=== PATIENT | male | born 1975 | race Two or more races ===

== ENCOUNTER 2017-01-19 02:54 | Emergency (ER) | payer BC ==
[~2017-01-19] VITALS: Ht 165.1 cm; Wt 77.1 kg
[~2017-01-19 02:54] MED LIST: OXYC-323 PO
[2017-01-19 03:04] VITALS: BP 181/98
[2017-01-19] MEDS ORDERED: FLUORESCEIN OPHTH TEST STRIP. OS ONE (04:15)
[2017-01-19] MEDS ORDERED: TETRACAINE 0.5% OPHTH SOLUTION 4ML BOTTLE. OS ONE (04:15)
--- NOTE | 2017-01-19 04:57 | PHYS DOC ---
Past Medical History Past Medical History: No Pertinent History Past Surgical History: No Surgical History Alcohol Use: Heavy Drug Use: None Adult General Chief Complaint Chief Complaint: FOREIGN BODY/EYES HPI HPI Patient is a 41 year old male who presents with right eye irritation. Reports exposure to sawdust while sawing wood several hours prior to arrival. Feels like a piece of sawdust is stuck under his eyelid. Denies vision changes, does not wear glasses or contacts. Review of Systems Review of Systems Constitutional: Denies fever or chills Eyes: Reports eye irritation HENT: Denies nasal congestion or sore throat Respiratory: Denies cough Cardiovascular: Denies chest pain GI: Denies abdominal pain, nausea, vomiting Musculoskeletal: Denies back pain or joint pain Integument: Denies rash Neurologic: Denies headache Current Medications Current Medications Current Medications Medications (Trade) Dose Ordered Sig/Tip Start Time Stop Time Status Last Admin Dose Admin Erythromycin (Romycin) 0.25 inch 1X ONCE 01/19/17 05:15 01/19/17 05:15 DC 01/19/17 05:00 0.25 INCH Fluorescein Sodium (Ful-Narcisa) 1 strip 1X ONCE 01/19/17 04:15 01/19/17 04:16 DC 01/19/17 04:11 1 STRIP Tetracaine HCl (Tetracaine) 1 drop 1X ONCE 01/19/17 04:15 01/19/17 04:16 DC 01/19/17 04:11 1 DROP Allergies Allergies Allergies Coded Allergies Type Severity Reaction Last Updated Verified No Known Drug Allergies 06/30/15 No Physical Exam Physical Exam Constitutional: Well developed, well nourished, no acute distress, non-toxic appearance. HENT: Normocephalic, atraumatic, bilateral external ears normal, oropharynx moist, nose normal. Eyes: PERRLA, EOMI, left eye conjunctival injection, no evidence of foreign body , no corneal abrasion with fluorescein stain & exam under anand lamp, no discharge. Cardiovascular: no edema. Lungs & Thorax: no respiratory distress. Abdomen: nondistended. Skin: no rash. Extremities: No deformity Neurologic: Alert and oriented X 3 Current Patient Data Vital Signs Vital Signs Date Time Temp Pulse Resp B/P (MAP) Pulse Ox O2 Delivery O2 Flow Rate FiO2 01/19/17 03:04 98.7 79 16 99 Room Air 98.7 EKG EKG [] Radiology/Procedures Radiology/Procedures [] Course & Med Decision Making Course & Med Decision Making Pertinent Labs and Imaging studies reviewed. (See chart for details) The patient presents with eye irritation possible foreign body. Tech assisted with eye irrigation, visual acuities documented. No corneal abrasion with anand lamp exam after fluorescein instillation. Will give erythromycin, recommend follow up with Dr. Harding in the eye clinic in 2-3 days if not improving. Come back for vision changes or otherwise worsening condition. Discharged home in stable condition. [] Dragon Disclaimer Dragon Disclaimer This electronic medical record was generated, in whole or in part, using a voice recognition dictation system. Departure Departure Impression: Primary Impression: Conjunctivitis Disposition: HOME, SELF-CARE Condition: STABLE Referrals: NO PCP (PCP) VEGA HARDING MD Patient Instructions: Eye - Foreign Body, [id number] Additional Instructions: You were seen in the emergency department today for foreign body in eye. There was no abrasion or remaining particle on exam. Please apply prescribed antibiotic ointment three times daily. Follow up with Dr. Harding in the eye clinic if symptoms not better on Saturday. SUSANNA AVALOS MD Jan 19, 2017 04:57
[2017-01-19] MEDS ORDERED: ERYTHROMYCIN 0.5% OPHTH OINTMENT 1GM TUBE. OS ONE (05:15)
== END 2017-01-19 05:15 | disposition home or self-care (01) ==
LOC: ER 02:54
DX: H10.9 Unspecified conjunctivitis (principal); F10.10 Alcohol abuse, uncomplicated
CPT/HCPCS: 99283

== ENCOUNTER 2018-08-10 18:37 | Inpatient (IN) | payer SELFPAY ==
[~2018-08-10] VITALS: Ht 160 cm; Wt 81.7 kg
[~2018-08-10 18:37] MED LIST changes: -OXYC-323 PO; +OXYC1TAB15 PO
--- NOTE | 2018-08-10 20:15 | PHYS DOC ---
Past Medical History Past Medical History: No Pertinent History Past Surgical History: Cholecystectomy Alcohol Use: Occasionally Drug Use: None Adult General Chief Complaint Chief Complaint: HYPERTENSION HPI HPI Patient is a 43 year old female was presenting with chief complaint of palpitations and generalized weakness. This patient has had some palpitations at night. The heart pounding for the last 2 months today he was cleaning his car he just felt very very weak like he was going to pass out he felt very dizzy he felt very nauseous she really did not have any chest pain per se he had some mild shortness of breath but that is much better. Patient has no recent fevers at all. Review of Systems Review of Systems Constitutional: Denies fever or chills [] Eyes: Denies change in visual acuity, redness, or eye pain [] HENT: Denies nasal congestion or sore throat [] Musculoskeletal: Denies back pain or joint pain [] Integument: Denies rash or skin lesions [] All other systems were reviewed and found to be within normal limits, except as documented in this note. Current Medications Current Medications Current Medications Medications (Trade) Dose Ordered Sig/Tip Start Time Stop Time Status Last Admin Dose Admin Amlodipine Besylate (Norvasc) 5 mg 1X ONCE 08/10/18 20:30 08/10/18 20:31 DC 08/10/18 20:59 5 MG Aspirin (Children'S Aspirin) 324 mg 1X ONCE 08/10/18 20:30 08/10/18 20:31 DC 08/10/18 20:59 324 MG Labetalol HCl (Normodyne Iv Push) 20 mg PRN Q2HR PRN 08/10/18 21:15 Nitroglycerin (Nitro-Bid Oint) 1 inch 1X ONCE 08/10/18 21:00 08/10/18 21:01 DC 08/10/18 21:01 1 INCH Nitroglycerin (Nitrostat) 0.4 mg PRN Q5MIN PRN 08/10/18 21:15 08/11/18 21:14 Allergies Allergies Allergies Coded Allergies Type Severity Reaction Last Updated Verified No Known Drug Allergies 06/30/15 No Physical Exam Physical Exam Constitutional: Well developed, well nourished, no acute distress, non-toxic appearance. [] HENT: Normocephalic, atraumatic, bilateral external ears normal, oropharynx moist, no oral exudates, nose normal. [] Eyes: PERRLA, EOMI, conjunctiva normal, no discharge. [] Neck: Normal range of motion, no tenderness, supple, no stridor. [] Cardiovascular:Heart rate regular rhythm, no murmur [] Lungs & Thorax: Bilateral breath sounds clear to auscultation [] Abdomen: Bowel sounds normal, soft, no tenderness, no masses, no pulsatile masses. [] Skin: Warm, dry, no erythema, no rash. [] Back: No tenderness, no CVA tenderness. [] Extremities: No tenderness, no cyanosis, no clubbing, ROM intact, no edema. [] Neurologic: Alert and oriented X 3, normal motor function, normal sensory function, no focal deficits noted. [] Psychologic: Affect normal, judgement normal, mood normal. [] Current Patient Data Vital Signs Vital Signs Date Time Temp Pulse Resp B/P (MAP) Pulse Ox O2 Delivery O2 Flow Rate FiO2 08/10/18 21:01 79 149/91 08/10/18 19:51 97.8 20 97 Room Air 97.8 Lab Values Laboratory Tests Test 08/10/18 20:05 White Blood Count 8.2 x10^3/uL (4.0-11.0) Red Blood Count 5.25 x10^6/uL (4.30-5.70) Hemoglobin 15.7 g/dL (13.0-17.5) Hematocrit 46.7 % (39.0-53.0) Mean Corpuscular Volume 89 fL (79-100) Mean Corpuscular Hemoglobin 30 pg (25-35) Mean Corpuscular Hemoglobin Concent 34 g/dL (31-37) Red Cell Distribution Width 13.2 % (11.5-14.5) Platelet Count 210 x10^3/uL (140-400) Neutrophils (%) (Auto) 64 % (31-73) Lymphocytes (%) (Auto) 27 % (24-48) Monocytes (%) (Auto) 8 % (0-9) Eosinophils (%) (Auto) 1 % (0-3) Basophils (%) (Auto) 1 % (0-3) Neutrophils # (Auto) 5.3 x10^3uL (1.8-7.7) Lymphocytes # (Auto) 2.2 x10^3/uL (1.0-4.8) Monocytes # (Auto) 0.7 x10^3/uL (0.0-1.1) Eosinophils # (Auto) 0.0 x10^3/uL (0.0-0.7) Basophils # (Auto) 0.0 x10^3/uL (0.0-0.2) Prothrombin Time 13.4 SEC (11.7-14.0) Prothrombin Time INR 1.1 (0.8-1.1) Sodium Level 141 mmol/L (136-145) Potassium Level 3.5 mmol/L (3.5-5.1) Chloride Level 101 mmol/L (98-107) Carbon Dioxide Level 27 mmol/L (21-32) Anion Gap 13 (6-14) Blood Urea Nitrogen 14 mg/dL (8-26) Creatinine 0.9 mg/dL (0.7-1.3) Estimated GFR (Cockcroft-Gault) 91.7 BUN/Creatinine Ratio 16 (6-20) Glucose Level 111 mg/dL (70-99) H Calcium Level 9.0 mg/dL (8.5-10.1) Total Bilirubin 0.9 mg/dL (0.2-1.0) Aspartate Amino Transferase (AST) 30 U/L (15-37) Alanine Aminotransferase (ALT) 36 U/L (16-63) Alkaline Phosphatase 77 U/L (46-116) Troponin I Quantitative 0.111 ng/mL (0.000-0.055) UT-Axp-F-Type Natriuretic Peptide 9 pg/mL (0-124) Total Protein 8.2 g/dL (6.4-8.2) Albumin 4.0 g/dL (3.4-5.0) Albumin/Globulin Ratio 1.0 (1.0-1.7) Ethyl Alcohol Level < 10 mg/dL (0-10) Laboratory Tests 08/10/18 20:05 Laboratory Tests 08/10/18 20:05 EKG EKG []ekg SHOWS NORMAL SINUS RHYTHM normal intervals no STEMI no ischemic changes Radiology/Procedures Radiology/Procedures [] Impressions: chest x-ray is pending at this time Course & Med Decision Making Course & Med Decision Making Pertinent Labs and Imaging studies reviewed. (See chart for details) []43-year-old male with a history of apparent possible hypertension and a family history of coronary disease mother at the age of 35 from a heart attack was presenting with vague sensation of generalized weakness and some nausea while exerting himself this afternoon he has had blood pressure in the 170s at this point in time cardiac etiology is certainly a possibility. The heart score is a H 2 E 0 A 0 R 1 T 1, the history is somewhat vague but cardiac is possible igven strong family hx, will admit for serial trops and consideration of FURTHER RISK STRATIFICATION. D/W LENI. Marah Disclaimer Dragarmando Disclaimer This electronic medical record was generated, in whole or in part, using a voice recognition dictation system. Departure Departure Impression: Primary Impression: Elevated troponin Additional Impression: Hypertensive urgency Disposition: ADMITTED INPATIENT Admitting Physician: Sal Khan Condition: STABLE Referrals: NO PCP (PCP) Problem Qualifiers CUCA MCINTYRE MD Aug 10, 2018 20:15
[2018-08-10 20:22] LABS: BASO % 1 % (0-3); EOS % 1 % (0-3); HEMATOCRIT 46.7 % (39.0-53.0); HEMOGLOBIN 15.7 g/dL (13.0-17.5); LYMPH # 2.2 x10^3/uL (1.0-4.8); LYMPH % 27 % (24-48); MEAN CORPUSCULAR HEMOGLOBIN 30 pg (25-35); MEAN CORPUSCULAR HGB CONC 34 g/dL (31-37); MEAN CORPUSCULAR VOLUME 89 fL (79-100); MONO # 0.7 x10^3/uL (0.0-1.1); MONO % 8 % (0-9); NEUT # 5.3 x10^3uL (1.8-7.7); NEUT % 64 % (31-73); PLATELET COUNT 210 x10^3/uL (140-400); RED BLOOD COUNT 5.25 x10^6/uL (4.30-5.70); RED CELL DISTRIBUTION WIDTH 13.2 % (11.5-14.5); WHITE BLOOD COUNT 8.2 x10^3/uL (4.0-11.0)
[2018-08-10] MEDS ORDERED: ASPIRIN CHEWABLE 81 MG TABLET. PO ONE (20:30)
[2018-08-10] MEDS ORDERED: amLODIPine BESYLATE 5 MG TABLET PO ONE (20:30)
[2018-08-10 20:32] LABS: CREATININE 0.9 mg/dL (0.7-1.3); GFR 91.7; POTASSIUM 3.5 mmol/L (3.5-5.1)
[2018-08-10 20:34] LABS: PROTHROMBIN TIME PATIENT 13.4 SEC (11.7-14.0)
[2018-08-10 20:39] LABS: TOTAL BILIRUBIN 0.9 mg/dL (0.2-1.0); TOTAL PROTEIN 8.2 g/dL (6.4-8.2)
--- NOTE | 2018-08-10 20:51 | RAD ---
EXAM: Chest, single view. HISTORY: Chest pain. COMPARISON: None. FINDINGS: A frontal view of the chest is obtained. There is no infiltrate, pleural effusion or pneumothorax. The heart is normal in size. IMPRESSION: No acute pulmonary finding. Electronically signed by: Carmelina Patterson MD (08/10/2018 8:48 PM) [facility]
[2018-08-10] MEDS ORDERED: NITROGLYCERIN OINT 1 GM PACKET. TP ONE (21:00)
[2018-08-10] MEDS ORDERED: NITROGLYCERIN SUBLINGUAL 0.4 MG BOTTLE OF 25. SL PRN (21:15)
[2018-08-10] MEDS ORDERED: LABETALOL 20 MG/4 ML DISP.SYRIN. IVP PRN (21:15)
[2018-08-10 22:23] LABS: BARBITURATES NEG (NEG); BENZODIAZEPINES NEG (NEG); CANNABINOIDS NEG (NEG); COCAINE NEG (NEG); METHADONE NEG (NEG); OPIATES NEG (NEG); PHENCYCLIDINE NEG (NEG)
[2018-08-10 22:24] LABS: AMPHETAMINE/METHAMPHETAMINE NEG (NEG)
[2018-08-10 23:00] VITALS: BP 113/67
[2018-08-11 03:00] VITALS: BP 109/63
[2018-08-11 07:00] VITALS: BP 111/69
--- NOTE | 2018-08-11 07:04 | EKG ---
[facility] [address] [place] [address] Test Date: 2018-08-10 Test Time: 20:01:41 Pat Name: CLEO MIX Department: Room: 528 1 Gender: M [employer]: : 1975 Requested By: CUCA MCINTYRE Order Number: [id number] Reading MD: Luis Enrique Chiang MD Measurements Intervals [place] Rate: 84 P: 90 ME: 160 QRS: -26 QRSD: 106 T: 28 QT: 390 QTc: 464 Interpretive Statements SINUS RHYTHM LEFTWARD AXIS NO SPECIFIC ECG ABNORMALITIES Electronically Signed On 08-11-2018 14:31:09 CDT by Luis Enrique Chiang MD
--- NOTE | 2018-08-11 09:46 | PDOC2 ---
SHUBHAM DOLL SMOKING TOBACCO PACKING MACHINE HAND 08/11/18 0945: CARDIAC CONSULT DATE OF CONSULT Date of Consult DATE: 08/11/18 TIME: 09:40 REASON FOR CONSULT Reason for Consult: Hypertension Elevated troponin REFERRING PHYSICIAN Referring Physician: Dr. Blackwell SOURCE Source: Chart review, Patient HISTORY OF PRESENT ILLNESS HISTORY OF PRESENT ILLNESS This is a 43 yo male who presented with palpitations, dizziness, weakness. Patient reports intermittent palpitations for the last 3 months. Last couple of weeks, has had dizziness and nausea. Shortness of breath x 2 days. No chest pain or diaphoresis. Does have a history of hypertension but does not take any medications. PAST MEDICAL HISTORY Cardiovascular: HTN Pulmonary: No pertinent hx CENTRAL NERVOUS SYSTEM: Other (no pertinent hx) GI: GERD Heme/Onc: No pertinent hx Hepatobiliary: No pertinent hx Psych: No pertinent hx Musculoskeletal: Other (no pertinent hx) Rheumatologic: No pertinent hx Infectious disease: No pertinent hx ENT: No pertinent hx Renal/: No pertinent hx Endocrine: No pertinent hx Dermatology: No pertinent hx PAST SURGICAL HISTORY Past Surgical History: Cholecystectomy FAMILY HISTORY Family History: Diabetes, Hypertension SOCIAL HISTORY Smoke: No ALCOHOL: other (5 beers daily) Drugs: None Lives: with Family CURRENT MEDICATIONS CURRENT MEDICATIONS Current Medications Medications (Trade) Dose Ordered Sig/Tip Route PRN Reason Start Time Stop Time Status Last Admin Dose Admin Aspirin (Children'S Aspirin) 324 mg 1X ONCE PO 08/10/18 20:30 08/10/18 20:31 DC 08/10/18 20:59 Amlodipine Besylate (Norvasc) 5 mg 1X ONCE PO 08/10/18 20:30 08/10/18 20:31 DC 08/10/18 20:59 Nitroglycerin (Nitro-Bid Oint) 1 inch 1X ONCE TP 08/10/18 21:00 08/10/18 21:01 DC 08/10/18 21:01 Labetalol HCl (Normodyne Iv Push) 20 mg PRN Q2HR PRN IVP ELEVATED BP, SEE COMMENTS 08/10/18 21:15 08/10/18 21:33 ALLERGIES ALLERGIES: Coded Allergies: No Known Drug Allergies (Unverified , 06/30/15) ROS Review of System 14 point ROS conducted with pertinent positives noted above in HPI. PHYSICAL EXAM PHYSICAL EXAM General: Alert, Oriented X3, Cooperative, No acute distress HEENT: Atraumatic, Mucous membr. moist/pink Lungs: Clear to auscultation, Normal air movement Heart: Regular rate, Normal S1, Normal S2, No murmurs Abdomen: soft, non-tender Extremities: No cyanosis, No edema Skin: No breakdown, No significant lesion Neuro: Normal speech, Sensation intact Psych/Mental Status: Mental status NL, Mood NL MUSCULOSKELETAL: Full range of motion without pain VITALS VITALS Vital Signs Date Time Temp Pulse Resp B/P (MAP) Pulse Ox O2 Delivery O2 Flow Rate FiO2 08/11/18 07:00 97.8 68 17 111/69 (83) 96 Nasal Cannula 2.0 97.8 LABS Lab: Laboratory Tests Test 08/10/18 20:05 08/10/18 22:04 08/11/18 00:25 08/11/18 04:15 White Blood Count 8.2 x10^3/uL (4.0-11.0) Red Blood Count 5.25 x10^6/uL (4.30-5.70) Hemoglobin 15.7 g/dL (13.0-17.5) Hematocrit 46.7 % (39.0-53.0) Mean Corpuscular Volume 89 fL (79-100) Mean Corpuscular Hemoglobin 30 pg (25-35) Mean Corpuscular Hemoglobin Concent 34 g/dL (31-37) Red Cell Distribution Width 13.2 % (11.5-14.5) Platelet Count 210 x10^3/uL (140-400) Neutrophils (%) (Auto) 64 % (31-73) Lymphocytes (%) (Auto) 27 % (24-48) Monocytes (%) (Auto) 8 % (0-9) Eosinophils (%) (Auto) 1 % (0-3) Basophils (%) (Auto) 1 % (0-3) Neutrophils # (Auto) 5.3 x10^3uL (1.8-7.7) Lymphocytes # (Auto) 2.2 x10^3/uL (1.0-4.8) Monocytes # (Auto) 0.7 x10^3/uL (0.0-1.1) Eosinophils # (Auto) 0.0 x10^3/uL (0.0-0.7) Basophils # (Auto) 0.0 x10^3/uL (0.0-0.2) Prothrombin Time 13.4 SEC (11.7-14.0) Prothromb Time International Ratio 1.1 (0.8-1.1) Sodium Level 141 mmol/L (136-145) Potassium Level 3.5 mmol/L (3.5-5.1) Chloride Level 101 mmol/L (98-107) Carbon Dioxide Level 27 mmol/L (21-32) Anion Gap 13 (6-14) Blood Urea Nitrogen 14 mg/dL (8-26) Creatinine 0.9 mg/dL (0.7-1.3) Estimated GFR (Cockcroft-Gault) 91.7 BUN/Creatinine Ratio 16 (6-20) Glucose Level 111 mg/dL (70-99) Calcium Level 9.0 mg/dL (8.5-10.1) Total Bilirubin 0.9 mg/dL (0.2-1.0) Aspartate Amino Transf (AST/SGOT) 30 U/L (15-37) Alanine Aminotransferase (ALT/SGPT) 36 U/L (16-63) Alkaline Phosphatase 77 U/L (46-116) Troponin I Quantitative 0.111 ng/mL (0.000-0.055) 0.108 ng/mL (0.000-0.055) 0.103 ng/mL (0.000-0.055) OA-Xhs-H-Type Natriuretic Peptide 9 pg/mL (0-124) Total Protein 8.2 g/dL (6.4-8.2) Albumin 4.0 g/dL (3.4-5.0) Albumin/Globulin Ratio 1.0 (1.0-1.7) Ethyl Alcohol Level < 10 mg/dL (0-10) Urine Opiates Screen Neg (NEG) Urine Methadone Screen Neg (NEG) Urine Barbiturates Neg (NEG) Urine Phencyclidine Screen Neg (NEG) Urine Amphetamine/Methamphetamine Neg (NEG) Urine Benzodiazepines Screen Neg (NEG) Urine Cocaine Screen Neg (NEG) Urine Cannabinoids Screen Neg (NEG) Urine Ethyl Alcohol Neg (NEG) Test 08/11/18 07:17 Glucose (Fingerstick) 93 mg/dL (70-99) ECHOCARDIOGRAM ECHOCARDIOGRAM <Conclusion> The left ventricle is normal size. Left ventricle systolic function is normal. The Ejection Fraction is 50-55%. There is no significant aortic valvular stenosis. Doppler and Color Flow revealed no significant aortic regurgitation. Doppler and Color Flow revealed trace mitral regurgitation. Doppler and Color Flow revealed trace tricuspid regurgitation. There is no evidence of significant pericardial effusion. DATE: 05/24/15 1620 ASSESSMENT/PLAN ASSESSMENT/PLAN 1. Palpitations, dizziness. No acute events noted on tele 2. Accelerated hypertension; now controlled following one dose of Norvasc and PRN labetalol 3. Mild troponin elevation; peak 0.111. Most probably type II, demand ischemia in the setting of #2. CP free Recommendations check lipids, TSH Add lisinopril for BP control Obtain echo to assess LV systolic function Monitor tele for arrhythmias; unable to arrange outpatient event monitor as patient cannot afford without insurance SS consult VIPUL FARNSWORTH MD 08/11/18 3849: CARDIAC CONSULT ASSESSMENT/PLAN ASSESSMENT/PLAN Patient seen and examined. Agree with above nurse practitioner note. 43-year-old male who presented with some anxiety and atypical chest discomfort. He had some palpitations mostly. EKG is nonspecific and echocardiogram is suggestive of apical hypertrophic variant but this may also simply be LVH related to uncontrolled hypertension. Normal cardiac examination. He likely has some LVH from uncontrolled hypertension. At baseline he is quite functional and has not had any pathology. Due to language issues I spoke with the patient's primary care physician at this admission who was able to speak with the patient and his [place] which and did not elicit any alarm symptoms. Elevated troponin it should be related to hypertension. He had a previously normal stress test within the last 5 years. Discussed need for BP control and routine mgmt. He will seek help through public health social worker as he does not have any current insurance. SHUBHAM DOLL APRN Aug 11, 2018 09:45 VIPUL FARNSWORTH MD Aug 11, 2018 18:39
[2018-08-11 11:00] VITALS: BP 113/68
--- NOTE | 2018-08-11 14:17 | CARD ---
MR#: [id number] Date of Study: 08/11/2018 Ordering Physician: SHUBHAM DOLL, Referring Physician: JUAN DAVID FARRAR Tech: Génesis Singh RDCS APPROVED REPORT EXAM: Two-dimensional and M-mode echocardiogram with Doppler and color Doppler. Other Information Quality : Good INDICATION Hypertension/HCVD Elevated Troponin 2D DIMENSIONS RVDd2.8 (2.9-3.5cm)Left Atrium(2D)4.1 (1.6-4.0cm) IVSd1.1 (0.7-1.1cm)Aortic Root(2D)2.7 (2.0-3.7cm) LVDd5.2 (3.9-5.9cm)LVOT Diameter2.1 (1.8-2.4cm) PWd1.1 (0.7-1.1cm)LVDs3.6 (2.5-4.0cm) FS (%) 30.4 %SV74.1 ml LVEF(%)57.5 (>50%) Aortic Valve AoV Peak Larry.137.8cm/sAoV VTI24.8cm AO Peak GR.7.6mmHgLVOT Peak Larry.108.7cm/s AO Mean GR.5mmHgAVA (VMAX)2.76cm2 EUGENE (VTI)2.80cm2 Mitral Valve MV E Npfoqgms94.1cm/sMV DECEL [id number] MV A Sdndusdc79.6cm/sE/A Ratio0.7 Tricuspid Valve TR P. Gdhzvyod655pm/sRAP BRCQDJTF0mvAy TR Peak Gr.46lvNhEKFC30jpMt Pulmonary Vein S1 Fszlazoj14.9cm/sD2 Bxybvcpg90.9cm/s LEFT VENTRICLE The left ventricle is normal size. There is mild concentric left ventricular hypertrophy. The left ve ntricular systolic function is normal and the ejection fraction is within normal range. The Ejection Fraction is 55-60%. There is normal LV segmental wall motion. Transmitral Doppler flow pattern is Gra de I-abnormal relaxation pattern. RIGHT VENTRICLE The right ventricle is normal size. The right ventricular systolic function is normal. ATRIA The left atrium is mildly dilated. The right atrium size is normal. The interatrial septum is intact with no evidence for an atrial septal defect or patent foramen ovale as noted on 2-D or Doppler imagi ng. AORTIC VALVE The aortic valve is calcified but opens well. Doppler and Color Flow revealed no significant aortic r egurgitation. There is no significant aortic valvular stenosis. MITRAL VALVE The mitral valve is normal in structure and function. There is no evidence of mitral valve prolapse. There is no mitral valve stenosis. Doppler and Color Flow revealed no mitral valve regurgitation note d. TRICUSPID VALVE The tricuspid valve is normal in structure and function. Doppler and Color Flow revealed trace tricus pid regurgitation. The PA pressure was estimated at 24 mmHg. There is no tricuspid valve stenosis. PULMONIC VALVE The pulmonary valve is normal in structure and function. Doppler and Color Flow revealed no pulmonic valvular regurgitation. There is no pulmonic valvular stenosis. GREAT VESSELS The aortic root is normal in size. The ascending aorta is normal in size. The IVC is normal in size a nd collapses >50% with inspiration. PERICARDIAL EFFUSION There is no evidence of significant pericardial effusion. Critical Notification Critical Value: No <Conclusion> The left ventricle is normal size. The left ventricular systolic function is normal and the ejection fraction is within normal range. The Ejection Fraction is 55-60%. There is mild concentric left ventricular hypertrophy. There is no significant aortic valvular stenosis. Doppler and Color Flow revealed no significant aortic regurgitation. Doppler and Color Flow revealed no mitral valve regurgitation noted. Doppler and Color Flow revealed trace tricuspid regurgitation. The PA pressure was estimated at 24 mmHg. Signed by : Rg Madden MD Electronically Approved : 08/11/2018 14:16:30
--- NOTE | 2018-08-11 14:37 | PDOC1 ---
History and Physical Date of Admission Date of Admission 08/11/2018 Identification/Chief Complaint Chief Complaint My chest hurt Source Source: Patient History of Present Illness History of Present Illness Patient's a 43-year-old gentleman who works as a welder journeyman was in his usual state of health until the day prior to his admission when he started complaining of chest pressure and discomfort over the precordial area with no radiation to the jaw or the arm. The patient also felt palpitations that he has been experiencing over the last couple weeks but yesterday became very bothersome reason why he decided to come to the emergency department for further evaluation. The patient was found to have elevated troponins reason why we were asked to admit the patient for further treatment. The patient at the present time is in no apparent distress. Noticed that he was found to be in hypertensive urgency at the time of his admission. His blood pressure has since normalized and he is not exhibiting signs of malignant hypertension. He denies headache no blurred vision his chest discomfort may have been associated with his hypertensive urgency most likely. He did not percent encephalopathy. He denies dietary transgressions no excess salt has been reported. Patient denies nonadherence to his treatment plan as far as his antihypertensive goes, no recent changes to his medications no cold-like symptoms and no self-medication have been reported. No energy drinks or herbal supplements are being consumed by the patient at this time. He is in no acute distress at the time my visit, plan of care has been explained detail and all his concerns were addressed to the best of my abilities Past Medical History Cardiovascular: HTN Past Surgical History Past Surgical History: Cholecystectomy Family History Family History: Family History Unknown Social History ALCOHOL: occassional Drugs: None Current Problem List Problem List Problems Medical Problems: (1) Elevated troponin Status: Acute Current Medications Current Medications Current Medications Medications (Trade) Dose Ordered Sig/Tip Start Time Stop Time Status Last Admin Dose Admin Amlodipine Besylate (Norvasc) 5 mg 1X ONCE 08/10/18 20:30 08/10/18 20:31 DC 08/10/18 20:59 5 MG Aspirin (Children'S Aspirin) 324 mg 1X ONCE 08/10/18 20:30 08/10/18 20:31 DC 08/10/18 20:59 324 MG Labetalol HCl (Normodyne Iv Push) 20 mg PRN Q2HR PRN 08/10/18 21:15 08/10/18 21:33 20 MG Nitroglycerin (Nitro-Bid Oint) 1 inch 1X ONCE 08/10/18 21:00 08/10/18 21:01 DC 08/10/18 21:01 1 INCH Nitroglycerin (Nitrostat) 0.4 mg PRN Q5MIN PRN 08/10/18 21:15 08/11/18 21:14 Allergies Allergies Allergies Coded Allergies Type Severity Reaction Last Updated Verified No Known Drug Allergies 06/30/15 No ROS Review of System CONSTITUTIONAL: No fever or chills EYES: No recent changes SKIN: No rash or itching CARDIOVASCULAR: No chest pain, syncope, palpitations, or edema RESPIRATORY: No SOB or cough GASTROINTESTINAL: No nausea, vomiting or abdominal pain NEUROLOGICAL: No headaches or weakness ENDOCRINE: No cold or heat intolerance GENITOURINARY: No urgency or frequency of urination MUSCULOSKELETAL: No back pain or joint pain LYMPHATICS: No enlarged lymph nodes PSYCHIATRIC: No anxiety or depression Physical Exam Physical Exam GEN.: No apparent distress. Alert and oriented. HEENT: Head is normocephalic, atraumatic NECK: Supple. LUNGS: Clear to auscultation. HEART: RRR, S1, S2 present. Peripheral pulses intact ABDOMEN: Soft, nontender. Positive bowel sounds. EXTREMITIES: Without any cyanosis. NEUROLOGIC: Normal speech, normal tone PSYCHIATRIC: Normal affect, normal mood. SKIN: No ulcerations Vitals Vitals Vital Signs Date Time Temp Pulse Resp B/P (MAP) Pulse Ox O2 Delivery O2 Flow Rate FiO2 08/11/18 11:00 98.5 78 18 113/68 (83) 96 Nasal Cannula 2.0 98.5 Labs Labs Laboratory Tests Test 08/10/18 20:05 08/10/18 22:04 08/11/18 00:25 08/11/18 04:15 White Blood Count 8.2 x10^3/uL (4.0-11.0) Red Blood Count 5.25 x10^6/uL (4.30-5.70) Hemoglobin 15.7 g/dL (13.0-17.5) Hematocrit 46.7 % (39.0-53.0) Mean Corpuscular Volume 89 fL (79-100) Mean Corpuscular Hemoglobin 30 pg (25-35) Mean Corpuscular Hemoglobin Concent 34 g/dL (31-37) Red Cell Distribution Width 13.2 % (11.5-14.5) Platelet Count 210 x10^3/uL (140-400) Neutrophils (%) (Auto) 64 % (31-73) Lymphocytes (%) (Auto) 27 % (24-48) Monocytes (%) (Auto) 8 % (0-9) Eosinophils (%) (Auto) 1 % (0-3) Basophils (%) (Auto) 1 % (0-3) Neutrophils # (Auto) 5.3 x10^3uL (1.8-7.7) Lymphocytes # (Auto) 2.2 x10^3/uL (1.0-4.8) Monocytes # (Auto) 0.7 x10^3/uL (0.0-1.1) Eosinophils # (Auto) 0.0 x10^3/uL (0.0-0.7) Basophils # (Auto) 0.0 x10^3/uL (0.0-0.2) Prothrombin Time 13.4 SEC (11.7-14.0) Prothromb Time International Ratio 1.1 (0.8-1.1) Sodium Level 141 mmol/L (136-145) Potassium Level 3.5 mmol/L (3.5-5.1) Chloride Level 101 mmol/L (98-107) Carbon Dioxide Level 27 mmol/L (21-32) Anion Gap 13 (6-14) Blood Urea Nitrogen 14 mg/dL (8-26) Creatinine 0.9 mg/dL (0.7-1.3) Estimated GFR (Cockcroft-Gault) 91.7 BUN/Creatinine Ratio 16 (6-20) Glucose Level 111 mg/dL (70-99) Calcium Level 9.0 mg/dL (8.5-10.1) Total Bilirubin 0.9 mg/dL (0.2-1.0) Aspartate Amino Transf (AST/SGOT) 30 U/L (15-37) Alanine Aminotransferase (ALT/SGPT) 36 U/L (16-63) Alkaline Phosphatase 77 U/L (46-116) Troponin I Quantitative 0.111 ng/mL (0.000-0.055) 0.108 ng/mL (0.000-0.055) 0.103 ng/mL (0.000-0.055) LW-Hdl-C-Type Natriuretic Peptide 9 pg/mL (0-124) Total Protein 8.2 g/dL (6.4-8.2) Albumin 4.0 g/dL (3.4-5.0) Albumin/Globulin Ratio 1.0 (1.0-1.7) Ethyl Alcohol Level < 10 mg/dL (0-10) Urine Opiates Screen Neg (NEG) Urine Methadone Screen Neg (NEG) Urine Barbiturates Neg (NEG) Urine Phencyclidine Screen Neg (NEG) Urine Amphetamine/Methamphetamine Neg (NEG) Urine Benzodiazepines Screen Neg (NEG) Urine Cocaine Screen Neg (NEG) Urine Cannabinoids Screen Neg (NEG) Urine Ethyl Alcohol Neg (NEG) Test 08/11/18 07:17 Glucose (Fingerstick) 93 mg/dL (70-99) Laboratory Tests Test 08/10/18 20:05 08/10/18 22:04 08/11/18 00:25 08/11/18 04:15 White Blood Count 8.2 x10^3/uL (4.0-11.0) Red Blood Count 5.25 x10^6/uL (4.30-5.70) Hemoglobin 15.7 g/dL (13.0-17.5) Hematocrit 46.7 % (39.0-53.0) Mean Corpuscular Volume 89 fL (79-100) Mean Corpuscular Hemoglobin 30 pg (25-35) Mean Corpuscular Hemoglobin Concent 34 g/dL (31-37) Red Cell Distribution Width 13.2 % (11.5-14.5) Platelet Count 210 x10^3/uL (140-400) Neutrophils (%) (Auto) 64 % (31-73) Lymphocytes (%) (Auto) 27 % (24-48) Monocytes (%) (Auto) 8 % (0-9) Eosinophils (%) (Auto) 1 % (0-3) Basophils (%) (Auto) 1 % (0-3) Neutrophils # (Auto) 5.3 x10^3uL (1.8-7.7) Lymphocytes # (Auto) 2.2 x10^3/uL (1.0-4.8) Monocytes # (Auto) 0.7 x10^3/uL (0.0-1.1) Eosinophils # (Auto) 0.0 x10^3/uL (0.0-0.7) Basophils # (Auto) 0.0 x10^3/uL (0.0-0.2) Prothrombin Time 13.4 SEC (11.7-14.0) Prothromb Time International Ratio 1.1 (0.8-1.1) Sodium Level 141 mmol/L (136-145) Potassium Level 3.5 mmol/L (3.5-5.1) Chloride Level 101 mmol/L (98-107) Carbon Dioxide Level 27 mmol/L (21-32) Anion Gap 13 (6-14) Blood Urea Nitrogen 14 mg/dL (8-26) Creatinine 0.9 mg/dL (0.7-1.3) Estimated GFR (Cockcroft-Gault) 91.7 BUN/Creatinine Ratio 16 (6-20) Glucose Level 111 mg/dL (70-99) Calcium Level 9.0 mg/dL (8.5-10.1) Total Bilirubin 0.9 mg/dL (0.2-1.0) Aspartate Amino Transf (AST/SGOT) 30 U/L (15-37) Alanine Aminotransferase (ALT/SGPT) 36 U/L (16-63) Alkaline Phosphatase 77 U/L (46-116) Troponin I Quantitative 0.111 ng/mL (0.000-0.055) 0.108 ng/mL (0.000-0.055) 0.103 ng/mL (0.000-0.055) OU-Uwn-G-Type Natriuretic Peptide 9 pg/mL (0-124) Total Protein 8.2 g/dL (6.4-8.2) Albumin 4.0 g/dL (3.4-5.0) Albumin/Globulin Ratio 1.0 (1.0-1.7) Ethyl Alcohol Level < 10 mg/dL (0-10) Urine Opiates Screen Neg (NEG) Urine Methadone Screen Neg (NEG) Urine Barbiturates Neg (NEG) Urine Phencyclidine Screen Neg (NEG) Urine Amphetamine/Methamphetamine Neg (NEG) Urine Benzodiazepines Screen Neg (NEG) Urine Cocaine Screen Neg (NEG) Urine Cannabinoids Screen Neg (NEG) Urine Ethyl Alcohol Neg (NEG) Test 08/11/18 07:17 Glucose (Fingerstick) 93 mg/dL (70-99) VTE Prophylaxis Ordered VTE Prophylaxis Devices: No VTE Pharmacological Prophylaxi: Yes Assessment/Plan Assessment/Plan Hypertensive urgency Elevated troponin which seem to be chronic in nature, most likely NSTEMI type 2 Obesity with a BMI of 31 Plan: continue to control BP will follow recommendations from geospatial information scientist follow results of FISH JOHN MD Aug 11, 2018 14:37
[2018-08-11 15:00] VITALS: BP 145/94
--- NOTE | 2018-08-11 15:20 | NUR ---
SW responding to a referral regarding self pay. Chart reviewed. Pt lives at home with spouse. SW provided pt with self pay resource guide, Rx card and community resources. No other dc needs noted. RN notified.
[2018-08-11] MEDS ORDERED: LISI-338 PO (17:13)
[2018-08-11] MEDS ORDERED: LISINOPRIL 5 MG TABLET. PO SCH (17:30)
[2018-08-11 17:50] VITALS: BP 145/94
--- NOTE | 2018-08-11 17:58 | NUR ---
Discharge Note: [facility] [place] Discharge instructions and discharge home medications reviewed with Patient and a copy given. All questions have been answered and understanding verbalized. The following instructions and handouts were given: Patient given education regarding lisinopril. [facility] Discontinued lines and drains: Iv removed per protocol. Patient discharged home.
--- NOTE | 2018-08-11 21:25 | PDOC3 ---
Discharge Summary Visit Information Date of Admission: Aug 11, 2018 Date of Discharge: Aug 11, 2018 Admitting Diagnosis: Hypertensive urgency/ elevated troponin Final Diagnosis Problems Medical Problems: (1) Elevated troponin Status: Acute Brief Hospital Course Allergies Allergies Coded Allergies Type Severity Reaction Last Updated Verified No Known Drug Allergies 06/30/15 No Vital Signs Vital Signs Date Time Temp Pulse Resp B/P (MAP) Pulse Ox O2 Delivery O2 Flow Rate FiO2 08/11/18 17:50 85 145/94 08/11/18 15:00 98.1 18 98 2.0 98.1 08/11/18 11:00 Nasal Cannula Lab Results Laboratory Tests Test 08/10/18 20:05 08/10/18 22:04 08/11/18 00:25 08/11/18 04:15 White Blood Count 8.2 x10^3/uL (4.0-11.0) Red Blood Count 5.25 x10^6/uL (4.30-5.70) Hemoglobin 15.7 g/dL (13.0-17.5) Hematocrit 46.7 % (39.0-53.0) Mean Corpuscular Volume 89 fL (79-100) Mean Corpuscular Hemoglobin 30 pg (25-35) Mean Corpuscular Hemoglobin Concent 34 g/dL (31-37) Red Cell Distribution Width 13.2 % (11.5-14.5) Platelet Count 210 x10^3/uL (140-400) Neutrophils (%) (Auto) 64 % (31-73) Lymphocytes (%) (Auto) 27 % (24-48) Monocytes (%) (Auto) 8 % (0-9) Eosinophils (%) (Auto) 1 % (0-3) Basophils (%) (Auto) 1 % (0-3) Neutrophils # (Auto) 5.3 x10^3uL (1.8-7.7) Lymphocytes # (Auto) 2.2 x10^3/uL (1.0-4.8) Monocytes # (Auto) 0.7 x10^3/uL (0.0-1.1) Eosinophils # (Auto) 0.0 x10^3/uL (0.0-0.7) Basophils # (Auto) 0.0 x10^3/uL (0.0-0.2) Prothrombin Time 13.4 SEC (11.7-14.0) Prothromb Time International Ratio 1.1 (0.8-1.1) Sodium Level 141 mmol/L (136-145) Potassium Level 3.5 mmol/L (3.5-5.1) Chloride Level 101 mmol/L (98-107) Carbon Dioxide Level 27 mmol/L (21-32) Anion Gap 13 (6-14) Blood Urea Nitrogen 14 mg/dL (8-26) Creatinine 0.9 mg/dL (0.7-1.3) Estimated GFR (Cockcroft-Gault) 91.7 BUN/Creatinine Ratio 16 (6-20) Glucose Level 111 mg/dL (70-99) Calcium Level 9.0 mg/dL (8.5-10.1) Total Bilirubin 0.9 mg/dL (0.2-1.0) Aspartate Amino Transf (AST/SGOT) 30 U/L (15-37) Alanine Aminotransferase (ALT/SGPT) 36 U/L (16-63) Alkaline Phosphatase 77 U/L (46-116) Troponin I Quantitative 0.111 ng/mL (0.000-0.055) 0.108 ng/mL (0.000-0.055) 0.103 ng/mL (0.000-0.055) DL-Ith-E-Type Natriuretic Peptide 9 pg/mL (0-124) Total Protein 8.2 g/dL (6.4-8.2) Albumin 4.0 g/dL (3.4-5.0) Albumin/Globulin Ratio 1.0 (1.0-1.7) Ethyl Alcohol Level < 10 mg/dL (0-10) Urine Opiates Screen Neg (NEG) Urine Methadone Screen Neg (NEG) Urine Barbiturates Neg (NEG) Urine Phencyclidine Screen Neg (NEG) Urine Amphetamine/Methamphetamine Neg (NEG) Urine Benzodiazepines Screen Neg (NEG) Urine Cocaine Screen Neg (NEG) Urine Cannabinoids Screen Neg (NEG) Urine Ethyl Alcohol Neg (NEG) Thyroid Stimulating Hormone (TSH) 4.053 uIU/mL (0.358-3.74) Test 08/11/18 07:17 Glucose (Fingerstick) 93 mg/dL (70-99) Laboratory Tests Test 08/10/18 22:04 08/11/18 00:25 08/11/18 04:15 08/11/18 07:17 Urine Opiates Screen Neg (NEG) Urine Methadone Screen Neg (NEG) Urine Barbiturates Neg (NEG) Urine Phencyclidine Screen Neg (NEG) Urine Amphetamine/Methamphetamine Neg (NEG) Urine Benzodiazepines Screen Neg (NEG) Urine Cocaine Screen Neg (NEG) Urine Cannabinoids Screen Neg (NEG) Urine Ethyl Alcohol Neg (NEG) Troponin I Quantitative 0.108 ng/mL (0.000-0.055) 0.103 ng/mL (0.000-0.055) Thyroid Stimulating Hormone (TSH) 4.053 uIU/mL (0.358-3.74) Glucose (Fingerstick) 93 mg/dL (70-99) Brief Hospital Course Mr. Woods is a 43 old male who presented with hypertensive urgency who also presented with elevation of troponin swhich seems to be a chornic issue. The patient describes his symptoms more or less as a panic attack and he does not present abnormalities on his ecHO. 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 Patient was deemed approprite for discharge and recommendations were given to him to follow up with his primary care physician closely. Discharge Information Condition at Discharge: Improved Follow Up: Weeks Disposition/Orders: D/C to Home Scheduled Lisinopril (Lisinopril) 5 Mg Tablet, 5 MG PO DAILY for HTN for 30 Days, #30 Prescribed by: FISH ALONSO MD on 08/11/18 2333 Miscellaneous Medications Info (No Known Medications Prior To Admisstion) Each, 1 EACH , (Reported) Entered as Reported by: LEVI SAM on 06/30/15 0912 FISH ALONSO MD Aug 11, 2018 21:25
== END 2018-08-11 18:00 | disposition home or self-care (01) | DRG 305 ==
LOC: ER 18:37 → 5 NORTH 21:56
PROVIDERS: ADMIT Internal Medicine; ATTEND Internal Medicine
DX: I16.0 Hypertensive urgency (principal); E66.9 Obesity, unspecified; F41.0 Panic disorder [episodic paroxysmal anxiety]; I10 Essential (primary) hypertension; K21.9 Gastro-esophageal reflux disease without esophagitis; Z68.31 Body mass index [BMI] 31.0-31.9, adult; Z82.49 Family history of ischemic heart disease and other diseases of the circulatory system; Z83.3 Family history of diabetes mellitus
CPT/HCPCS: 36415; 71045; 80053; 80307; 82962; 83880; 84443; 84484; 85025; 85610; 93005; 93306; 96374; G0480; J3490; 99285-25